=== PATIENT | female | born 1990 | race African-American/Black ===

== ENCOUNTER 2021-08-12 18:35 | Emergency (ER) | payer OTHER ==
[~2021-08-12] VITALS: Ht 172.7 cm; Wt 76.2 kg
[2021-08-12 18:46] VITALS: BP 131/78
--- NOTE | 2021-08-12 18:50 | NUR ---
BIBS FOR LAC ON LEFT METATARSAL #2 AND #3. THE PATIENT DENIES PAIN. NO APPARENT S/S INFECTION NOTED. WILL CONTINUE TO MONITOR THE PATIENT.
[2021-08-12] MEDS ORDERED: TDAP [DIPH/PERTUSSIS/TET] 0.5 ML VIAL IM ONE ×2 (19:00→19:06)
--- NOTE | 2021-08-12 19:23 | NUR ---
REPORT GIVEN TO NURSE MCNULTY FOR ELVIRA
[2021-08-12] MEDS ORDERED: IBUP-1955 PO (19:28)
--- NOTE | 2021-08-12 19:34 | NUR ---
RECEIVED THIS FEMALE PATIENT. EMT JUST PUT DERMABOUND ON PATIENT'S LAC WOUND. WAITING TO BE DISCHARGE.
--- NOTE | 2021-08-12 19:46 | NUR ---
Patient discharged to home in stable condition. Written and verbal after care instructions given. Patient verbalizes understanding of instruction.
== END 2021-08-12 19:47 | disposition home or self-care (01) ==
LOC: ER 19:01
DX: S91.112A Laceration without foreign body of left great toe without damage to nail, initial encounter (principal); S91.115A Laceration without foreign body of left lesser toe(s) without damage to nail, initial encounter; S91.312A Laceration without foreign body, left foot, initial encounter; W26.8XXA Contact with other sharp object(s), not elsewhere classified, initial encounter; Y93.89 Activity, other specified; Y92.89 Other specified places as the place of occurrence of the external cause; Y99.8 Other external cause status
CPT/HCPCS: 12001; 90471; 90715; 99283; A6403